=== PATIENT | male | born 1970 | race Caucasian/White ===

== ENCOUNTER 2018-03-20 09:06 | Day surgery (SDC) | payer OTHER ==
[2018-03-19 13:19] VITALS: BMI 32.3
[2018-03-20 10:27] VITALS: BP 108/75; TEMP 97.8
--- NOTE | 2018-03-20 11:51 | RAD ---
CERVICAL SPINE FOUR VIEWS: HISTORY: Cervical disk disease status post fusion. COMPARISON: 01/30/2017 FINDINGS: AP, lateral, flexion, and extension views of the cervical spine were performed. The patient is statu s post anterior fusion of C5 through C7, with a plate and screws. Disk spacers are in good position within the disk spaces. The plate is no longer well opposed to the C7 vertebral body, and the screws appear to have backed out, compared to the prior examination. There is an approximately 7 mm gap be tween the plate and the anterior aspect of the vertebral body. No prevertebral soft tissue swelling is seen. The vertebral bodies demonstrate normal alignment without subluxation. Alignment is unchan ged with flexion and extension. There may be slight widening of the gap between the inferior aspect of the plate and the C7 vertebral body with extension. IMPRESSION: 1. Post surgical changes of the cervical spine. 2. There has been interval hardware loosening with the inferior aspect of the plate protruding more anteriorly, in relation to the C7 vertebral body. POS: [facility]
--- NOTE | 2018-03-20 12:08 | RAD ---
CERVICAL MYELOGRAM: Date: 03/20/18 HISTORY: Cervical radiculopathy. COMPARISON: None. EXPOSURE: 0.7 minutes. 560.4 mGy*cm^2. FINDINGS: Initial 2 view second time worker lumbar spine [id number] demonstrates five lumbar-type vertebral bodies. Vertebr al body height is maintained. No fracture. Moderate degenerative change at L5-S1. Successful lumbar puncture for intrathecal contrast administration. A total of 8 mL of Isovue-M300 co ntrast was administered. No immediate or postprocedure complication. TECHNIQUE: Consent obtained for lumbar puncture for intrathecal contrast administration. The patient's back was evaluated. The L2-L3 level was deemed appropriate. The skin was prepped and draped in the sterile fas hion. 1% lidocaine, buffered with sodium bicarbonate, was used for local anesthesia. Under fluoroscop ic guidance, a 22 gauge spinal needle was advanced into the CSF space. The inner stylette was removed . There is prompt flow of clear CSF. Via a short tubing catheter, a total of 8 mL of Isovue-200M cont rast was administered intrathecally. The patient tolerated the procedure well. No immediate or postpr ocedure complication. IMPRESSION: Successful cervical myelogram. POS: [facility]
--- NOTE | 2018-03-20 13:07 | CT ---
POST MYELOGRAM CERVICAL SPINE CT: Date: 03/20/18 HISTORY: Cervical radiculopathy. Cervical fusion. COMPARISON: None. TECHNIQUE: Post myelogram cervical spine CT is performed without contrast. Reformatted images are submitted for interpretation. FINDINGS: There is an anterior fusion plate with transvertebral body screw at C5, C6, and C7. There is a gap be tween the anterior fusion plate and the respective vertebral body at C7. This gap is approximately 4. 0 mm. There is no prevertebral soft tissue swelling. Soft tissue neck structures are unremarkable. Upper mediastinum and lung apices are also unremarkable. Cervical spine vertebral body height is maintained. No fracture. No craniocervical dissociation. Late ral masses of C1 and C2 as well as the facets have appropriate articulation. Intact odontoid process. C2-C3: No significant disc osteophyte complex. No significant central canal stenosis. Mild right foraminal n arrowing due to degenerative changes on the uncovertebral joint. Minimal bilateral facet hypertrophy. Left neural foramen is patent. C3-C4: No significant disc osteophyte complex. No significant central canal stenosis. Right neural foramen i s patent. Mild left foraminal narrowing due to degenerative change of the uncovertebral joint and fac et hypertrophy. C4-C5: No significant disc osteophyte complex. No significant central canal stenosis. Right neural foramen i s patent. Mild left foraminal narrowing due to left facet hypertrophy. There is 3.4 mm anterolisthesi s of C4 upon C5. C5-C6: Broad based osteophyte ridge without significant central canal stenosis. Degenerative changes of the right uncovertebral joint result in moderate to severe right foraminal narrowing. Mild left foraminal narrowing due to degenerative change of the uncovertebral joint. Disc prosthesis is identified. C6-C7: No significant osteophyte ridge. No significant central canal stenosis. Degenerative changes of the r ight uncovertebral joint results in mild to moderate right foraminal narrowing. Left neural foramen i s minimally narrowed due to degenerative changes of the uncovertebral joint. Disc prosthesis is ident ified. C7-T1: No significant central canal stenosis or foraminal narrowing. IMPRESSION: Cervical fusion changes as above. The cervical fusion plate is no longer flush with the C7 vertebral body, which is similar to the previous radiographs. Varying degrees of central canal stenosis and foraminal narrowing, as above. POS: [facility]
== END 2018-03-20 12:40 | disposition home or self-care (01) ==
LOC: RAD 09:06
PROVIDERS: ATTEND Neurological Surgery
PROC: B00B1ZZ Plain Radiography of Spinal Cord using Low Osmolar Contrast (ICD-10-PCS; principal; 2018-03-20)
DX: M54.12 Radiculopathy, cervical region (principal); M50.90 Cervical disc disorder, unspecified, unspecified cervical region; Z98.1 Arthrodesis status
CPT/HCPCS: 62302; 72050; 72126